=== PATIENT | female | born 1980 | race Caucasian/White ===

== ENCOUNTER → 2018-04-02 10:39 | Outpatient (CLI) | payer OTHER, SELFPAY ==
[2018-04-02 14:40] LABS: Free T4, Direct Thyroxine 1.02 ng/dL (0.78-2.19)
[2018-04-02 14:54] LABS: Thyroid Stimulating Hormone 1.02 uIU/mL (0.47-4.68)
[2018-04-04 15:04] LABS: Progesterone < 0.5 ng/mL
[2018-04-05 12:24] LABS: PTT-LA Screen 30 seconds (< OR = 40); dDRVVT Screen 29 seconds (< OR = 45)
[2018-04-06 00:12] LABS: Protein C Antigen 132 % normal (70-140)
[2018-04-08 03:36] LABS: Anti Cardiolipin Antibody IgG <14 GPL
[2018-04-10 04:08] LABS: B2-Glycoprotein I IgA AB < 9 SAU (< OR = 20); B2-Glycoprotein I IgG AB < 9 SGU (< OR = 20); B2-Glycoprotein I IgM AB < 9 SMU (< OR = 20); Cardiolipin Ab IgA < 11 APL; Cardiolipin Ab IgG < 14 GPL; Cardiolipin Ab IgM < 12 MPL; Phos. Serine AB IgM 36 U/mL; dRVVT Screen 28 seconds (< OR = 45)
== END ==
PROVIDERS: Visit Provider Obstetrics & Gynecology
DX: N96 Recurrent pregnancy loss (principal)
CPT/HCPCS: 36415; 81240; 81241; 81291; 84144; 84439; 84443; 85302; 85306; 85597; 85613; 85730; 86146; 86147; 86148

== ENCOUNTER → 2018-05-15 14:23 | Outpatient (CLI) | payer OTHER, SELFPAY ==
[2018-05-15 16:50] LABS: HCG Quantitative /Beta subunit 39.45 mIU/mL
== END ==
PROVIDERS: Visit Provider Obstetrics & Gynecology
DX: N91.2 Amenorrhea, unspecified (principal); N96 Recurrent pregnancy loss
CPT/HCPCS: 36415; 84702

== ENCOUNTER → 2018-05-21 07:11 | Outpatient (CLI) | payer OTHER, SELFPAY ==
[2018-05-21 09:32] LABS: HCG Quantitative /Beta subunit 804.88 mIU/mL
== END ==
PROVIDERS: Visit Provider Obstetrics & Gynecology
DX: N91.2 Amenorrhea, unspecified (principal); N96 Recurrent pregnancy loss; Z34.91 Encounter for supervision of normal pregnancy, unspecified, first trimester
CPT/HCPCS: 36415; 84702

== ENCOUNTER → 2018-07-01 08:34 | Outpatient (CLI) | payer OTHER, SELFPAY ==
[2018-07-01 09:08] LABS: Add Manual Diff / Slide Review NO; Basophils Percent Auto 0.6 % (0-2); Eosinophils Percent Auto 4.4 % (2-4); Hematocrit 37.7 % (36-46); Hemoglobin 12.9 g/dL (12.0-16.0); Lymphocytes Percent Auto 23.6 % (25-40); Mean Corpuscular HGB Conc 34.2 % (30-36); Mean Corpuscular Hemoglobin 31.2 PG (26-34); Mean Corpuscular Volume 91.1 fL (80-100); Monocytes Percent Auto 6.1 % (3-14); Neutrophils Absolute Auto 4300 /uL (3000-5900); Neutrophils Percent Auto 65.3 % (50-75); Platelet Count 234 X10^3/uL (150-400); Red Blood Cell Count 4.14 X10^6/uL (4.0-5.2); Red Cell Distribution Width 12.6 % (11.6-14.8); White Blood Cell Count 6.5 X10^3/uL (4.5-11.0)
== END ==
PROVIDERS: Visit Provider Obstetrics & Gynecology
DX: O09.521 Supervision of elderly multigravida, first trimester (principal); Z3A.00 Weeks of gestation of pregnancy not specified
CPT/HCPCS: 36415; 81507; 85025; 86850; 86900; 86901; 87086

== ENCOUNTER → 2018-08-20 11:06 | Outpatient (CLI) | payer OTHER, SELFPAY ==
[2018-08-27 13:25] LABS: AFP, Serum 44.5 ng/mL; Calc Gestational Age 17.6; Est Date Determined by ULTRASOUND; Maternal Weight 145 lbs; Number of Fetuses NOT GIVEN; Prev Pregnancies Down Syndrome NOT GIVEN
== END ==
PROVIDERS: Visit Provider Obstetrics & Gynecology
DX: Z34.02 Encounter for supervision of normal first pregnancy, second trimester (principal)
CPT/HCPCS: 36415; 82105

== ENCOUNTER → 2018-09-09 08:05 | Outpatient (CLI) | payer OTHER, SELFPAY ==
--- NOTE | 2018-09-09 08:06 | DI.US.S_ITS ---
PROCEDURE: US OB >= 14 WEEKS FETUS INDICATIONS: anatomy survey OUTSIDE/PRIOR DATING DATA: Last menstrual period (LMP): 04/18/18. LMP-based estimated date of delivery (CAROL): 01/23/19. First dating scan (date and location): Dr. Butts's office 06/04/18. Estimated date of delivery (CAROL) from first dating scan: 01/24/19. TECHNIQUE: Real-time scanning was performed of the fetus, with image documentation and biometric measurements. COMPARISON: [facility], , OB <= 14 WEEKS FETUS, 06/25/2018, 8:51. [facility], , OB <= 14 WEEKS FETUS, 06/04/2018, 16:09. FINDINGS: General: A single live intrauterine gestation is present. Presentation: Vertex. Placenta: Placental position is anterior, without previa. Amniotic fluid index: 12.6 cm, normal range is 5-24 cm. heart rate: 147 beats per minute. Maternal cervical canal: 4.4 cm long. Normal lower limit is 2.5 cm. biometrics: Biparietal diameter: 4.8 cm equals 20 weeks 3 days Head circumference: 18 cm equals 20 weeks 3 days Abdominal circumference: 15.1 cm equals 20 weeks 2 days Femur length: 3.5 cm equals 20 weeks 6 days Estimated gestational age from initial scan: 20 weeks 3 days Composite gestational age from present scan: 20 weeks 4 days Estimated weight and percentile: 361 g, 52nd percentile Measurement variability for biometric dating: +/- 7 days from 14 weeks to 15 weeks 6 days gestation, +/- 10 days from 16 weeks to 21 weeks 6 days gestation, +/- 2 weeks from 22 weeks to 27 weeks 6 days gestation, +/- 3 weeks for 28 weeks gestation or later. weight reference: 4500 g or EFW >90/95% is considered macrosomia or large for gestational age. EFW <10% is small for gestational age. EFW 5% or less is considered intra-uterine growth restriction. Anatomic survey: Neuro: Ventricles are non-dilated at less than 10 mm. Cisterna magna is normal at 3-11 mm. Cerebellum is normal in size and morphology. Nuchal skin fold: Normal at less than 6 mm between 14-21 weeks gestational age. Face: Nose and lips, facial profile are normal. Spine: No evidence for spina bifida. Heart: 4-chambered heart is present, with normal ventricular outflow tracts. Diaphragm: Diaphragm is intact. Stomach: Left-sided stomach is present. Kidneys: No hydronephrosis. Normal is less than 5 mm in 2nd trimester, less than 7 mm in 3rd trimester. Cord: 3-vessel cord has orthotopic insertion. Bladder: Normal in size. Extremities: All 4 extremities identified. IMPRESSION: A single live intrauterine is seen. No significant discrepancy is found between the estimated gestational age based on these images and the estimated gestational age based upon the given outside dating. No anatomic abnormalities are identified. Dictated by: Devaughn Rangel M.D. on 09/09/2018 at 8:28 Approved by: Devaughn Rangel M.D. on 09/09/2018 at 8:31
== END ==
PROVIDERS: Visit Provider Obstetrics & Gynecology
DX: Z34.02 Encounter for supervision of normal first pregnancy, second trimester (principal); Z3A.14 14 weeks gestation of pregnancy
CPT/HCPCS: 76811

== ENCOUNTER → 2018-10-21 13:41 | Outpatient (CLI) | payer OTHER, SELFPAY ==
[2018-10-21 14:56] LABS: Hematocrit 34.5 % (36-46); Hemoglobin 11.9 g/dL (12.0-16.0)
[2018-10-21 15:13] LABS: GTT (PREG) 1 Hour PP 50gm Dose 96 mg/dL (76-139)
== END ==
PROVIDERS: Visit Provider Obstetrics & Gynecology
DX: Z34.02 Encounter for supervision of normal first pregnancy, second trimester (principal)
CPT/HCPCS: 36415; 82950; 85014; 85018

== ENCOUNTER 2018-10-28 13:15 | Emergency (ER) | payer OTHER, SELFPAY ==
[2018-10-28 13:20] VITALS: BP 96/58; PULSE 66; RESP 20; TEMP 36.4; O2SAT 100
--- NOTE | 2018-10-28 13:24 | DI.RAD.S_ITS ---
PROCEDURE: XR ANKLE RT MIN 3V INDICATIONS: rt lateral ankle pain after slip/fall TECHNIQUE: 3 views of the ankle were acquired. COMPARISON: None. FINDINGS: Bones: Ossification between the fibula and talus concerning for avulsion fracture. Ankle mortise is normally aligned. No suspicious bony lesions. Soft tissues: No tibiotalar joint effusion. Achilles tendon appears normal. IMPRESSION: Findings concerning for avulsion fracture possibly involving the talar lateral process. Dictated by: Valentina Snyder MD, PhD on 10/28/2018 at 13:35 Approved by: Valentina Snyder MD, PhD on 10/28/2018 at 13:37
--- NOTE | 2018-10-28 15:35 | ED.LOWEXIN ---
HPI - Extremity Injury (Lower) <ALONZO Hoang - Last Filed: 10/28/18 21:58> General Chief Complaint: Extremity Injury, Lower Stated Complaint: twisted right ankle Time Seen by Provider: 10/28/18 14:03 Source: patient Mode of arrival: ambulatory Limitations: no limitations History of Present Illness HPI Narrative: Healthy 38-year-old female that is a nonsmoker that is currently 26 weeks 3 para 0 here for complaint of pain into her right ankle. She states she was going down the steps when she stepped awkwardly causing her roll her right ankle. Pain is mostly to the lateral aspect of the right ankle. She denies any head injury. No neck pain no back pain. She denies any trauma to the abdomen. No abdominal pain. No vaginal bleeding. Pain is limited to the right ankle. Increased pain with weight-bearing. No other concerns or complaints at this timeframe. MD complaint: ankle injury Related Data Home Medications Medication Instructions Recorded Confirmed Fertilify PO DAILY 04/02/18 04/02/18 Previous Rx's Medication Instructions Recorded progesterone micronized 200 mg 200 mg PO DAILY #30 cap 04/15/18 capsule enoxaparin 40 mg/0.4 mL 40 mg SUBCUT DAILY #12 ml 05/15/18 subcutaneous syringe Allergies Allergy/AdvReac Type Severity Reaction Status Date / Time Penicillins [PENICILLINS] Allergy Mild hives Unverified 12/26/17 12:49 Sulfa (Sulfonamide Allergy Mild hives Unverified 12/26/17 12:49 Antibiotics) [SULFA (SULFONAMIDE ANTIBIOTICS)] Review of Systems <LAONZO Hoang - Last Filed: 10/28/18 21:58> Constitutional Denies chills, Denies fever(s), Denies lethargy and Denies weakness Eyes Denies change in vision, Denies eye discharge, Denies irritation and Denies loss of vision ENT Ears, Nose, Mouth, and Throat: Denies change in voice, Denies neck pain and Denies sore throat Cardiovascular Denies chest pain, Denies irregular heart rhythm, Denies lightheadedness, Denies palpitations, Denies dyspnea, Denies dyspnea on exertion and Denies orthopnea Respiratory Denies cough, Denies dyspnea, Denies dyspnea on exertion and Denies wheezing Gastrointestinal Gastrointestinal: Denies abdominal pain, Denies change in bowel habits, Denies diarrhea, Denies nausea and Denies vomiting Genitourinary Denies hematuria, Denies flank pain, Denies urinary incontinence and Denies urinary urgency Musculoskeletal Denies neck pain Comments: Right ankle pain Integumentary/Breasts Denies pruritus, Denies erythema, Denies rash and Denies wounds Neurologic Denies confusion, Denies loss of vision and Denies weakness Psychiatric Denies anxiety, Denies confusion, Denies depression, Denies homicidal ideation and Denies suicidal ideation Endocrine Denies palpitations Hematologic/Lymphatic Denies easy bruising Allergic/Immunologic Denies wheezing PFSH <ALONZO Hoang - Last Filed: 10/28/18 21:58> Social History Smoking Status: Never smoker Social History Smoking Status: Never smoker Exam <AOLNZO Hoang - Last Filed: 10/28/18 21:58> Initial Vital Signs Initial Vital Signs: Vital Signs Temperature 97.5 F L 10/28/18 13:20 Pulse Rate 66 10/28/18 13:20 Respiratory Rate 20 10/28/18 13:20 Blood Pressure 96/58 L 10/28/18 13:20 Pulse Oximetry 100 10/28/18 13:20 Const General: cooperative and well developed Nutritional Appearance: well nourished Orientation: alert, awake, oriented x3 and not confused HENKS Mouth: oral mucosae normal and moist mucous membranes Eyes Conjunctivae: conjunctivae normal Sclera: sclerae normal Pupils: PERRL EOM: EOM intact bilaterally Cardio Rate: regular rate Rhythm: regular rhythm Heart Sounds: no click, no gallops, no murmurs and no rubs Pulses: normal peripheral pulses Skin General: no rashes or lesions noted, No jaundice and No petechiae Neuro General: alert, oriented x3, gait normal and no focal motor deficits Speech: speech normal Extrem Other: Swelling and ecchymosis to the lateral aspect of the right ankle. No open lesions. Distal sensation is intact. Distal pulses are intact. Distal range of motion is intact. <Holli Calloway DO - Last Filed: 11/01/18 07:09> Initial Vital Signs Initial Vital Signs: Vital Signs Temperature 97.5 F L 10/28/18 13:20 Pulse Rate 66 10/28/18 13:20 Respiratory Rate 20 10/28/18 13:20 Blood Pressure 96/58 L 10/28/18 13:20 Pulse Oximetry 100 10/28/18 13:20 Course <ALONZO Hoang - Last Filed: 10/28/18 21:58> Orders Ordered: ED Orders 10/28/18 13:24 XR ankle RT min 3V Stat Vital Signs - 8 hr 10/28/18 15:50 Temperature 98.1 F Pulse Rate 78 Respiratory Rate 16 Blood Pressure [Left Arm] 100/58 L Pulse Oximetry 100 <Holli Calloway DO - Last Filed: 11/01/18 07:09> Orders Ordered: ED Orders 10/28/18 13:24 XR ankle RT min 3V Stat Vital Signs - 8 hr 10/28/18 15:50 Temperature 98.1 F Pulse Rate 78 Respiratory Rate 16 Blood Pressure [Left Arm] 100/58 L Pulse Oximetry 100 MDM - Extremity Injury (Lower) <ALONZO Hoang - Last Filed: 10/28/18 21:58> Lab Data Urine Dip Bedside Urine Glucose Negative Bedside Urine Bilirubin - Negative Bedside Urine Ketone - Negative Urine Specific [place] 1.010 Bedside Urine Occult Blood - Negative Bedside Urine pH 8.5 Bedside Urine Protein + 30 Bedside Urine Urobilinogen - Negative Bedside Urine Nitrite - Negative Bedside Urine Leukocytes - Negative Esterase Imaging Data Right ankle : Radiologist's impression: [place] [address] XRay Report Signed Patient: Silke Yao#: [id number] : 1980Acct:[id number] Age/Sex: 38 / FDate of Service: 10/28/18 Loc: ED Accession Number: [id number] Procedure: XR ankle RT min 3V Ordering Provider: Holli Calloway D.O. PROCEDURE: XR ANKLE RT MIN 3V INDICATIONS: rt lateral ankle pain after slip/fall TECHNIQUE: 3 views of the ankle were acquired. COMPARISON: None. FINDINGS: Bones: Ossification between the fibula and talus concerning for avulsion fracture. Ankle mortise is normally aligned. No suspicious bony lesions. Soft tissues: No tibiotalar joint effusion. Achilles tendon appears normal. IMPRESSION: Findings concerning for avulsion fracture possibly involving the talar lateral process. Dictated by: Valentina Snyder MD, PhD on 10/28/2018 at 13:35 Approved by: Valentina Snyder MD, PhD on 10/28/2018 at 13:37 [facility] Narrative Medical decision making narrative: X-ray of the right ankle was obtained and shows findings of avulsion fracture to the lateral talar for process. She is placed in a splint for comfort and support along with crutches for nonweightbearing. She is referred Orthopedics. Patient called the number and number provided schedule follow-up appointment here in the next few days. [id number] Tylenol as needed for any discomfort. Ice and elevation help with any swelling. Patient is going to [facility] the [place] at this time for cyst stress monitoring to ensure healthy baby after fall. For any worsening symptoms return to the emergency room. <Holli Calloway DO - Last Filed: 11/01/18 07:09> Lab Data Urine Dip Bedside Urine Glucose Negative Bedside Urine Bilirubin - Negative Bedside Urine Ketone - Negative Urine Specific [place] 1.010 Bedside Urine Occult Blood - Negative Bedside Urine pH 8.5 Bedside Urine Protein + 30 Bedside Urine Urobilinogen - Negative Bedside Urine Nitrite - Negative Bedside Urine Leukocytes - Negative Esterase Discharge Plan Departure Patient Disposition: Home Clinical Impression: Ankle fracture, right Qualifiers: Encounter type: initial encounter Fracture type: closed Qualified Code(s): S82.891A - Other fracture of right lower leg, initial encounter for closed fracture Discharge Date/Time: 10/28/18 15:57 Interventions: ED Discharge Assessment Last Done: 10/28/18 15:55 Instructions: DI for Ankle Fracture Activity Restrictions/Additional Instructions: X-ray the right ankle was obtained and shows a findings concerning for fracture to the right ankle. You have been placed in a splint for comfort and support use as directed. Use crutches for nonweightbearing. Use [id number] Tylenol as needed for any discomfort. Follow up with Orthopedics call the number at number provided to schedule follow-up appointment here in the next few days for further evaluation and treatment. Ice and elevation help with any swelling. For any worsening symptoms return to the emergency room. After discharge from emergency room go to [facility] to monitor the baby and sure everything is okay after the fall. Prescriptions: No Action progesterone micronized [Prometrium] 200 mg capsule 200 mg PO DAILY Qty: 30 RF: 3 enoxaparin [Lovenox] 40 mg/0.4 mL syringe 40 mg SUBCUT DAILY Qty: 12 RF: 8 Fertilify PO DAILY RF: 0 Referrals: [facility] [Provider Group] Maria Eugenia Butts MD [Primary Care Provider] - <Holli Calloway DO - Last Filed: 11/01/18 07:09> Cosign ED Attending Cosignature Attestation: I was immediately available in the department for consultation. This documentation has been reviewed and I agree with assessment and plan. Supervised by Holli Calloway DO
--- NOTE | 2018-10-28 15:39 | ED_ITS ---
HPI - Extremity Injury (Lower) <ALONZO Hoang - Last Filed: 10/28/18 21:58> General Chief Complaint: Extremity Injury, Lower Stated Complaint: twisted right ankle Time Seen by Provider: 10/28/18 14:03 Source: patient Mode of arrival: ambulatory Limitations: no limitations History of Present Illness HPI Narrative: Healthy 38-year-old female that is a nonsmoker that is currently 26 weeks 3 para 0 here for complaint of pain into her right ankle. She states she was going down the steps when she stepped awkwardly causing her roll her right ankle. Pain is mostly to the lateral aspect of the right ankle. She denies any head injury. No neck pain no back pain. She denies any trauma to the abdomen. No abdominal pain. No vaginal bleeding. Pain is limited to the right ankle. Increased pain with weight-bearing. No other concerns or complaints at this timeframe. MD complaint: ankle injury Related Data Home Medications Medication Instructions Recorded Confirmed Fertilify PO DAILY 04/02/18 04/02/18 Previous Rx's Medication Instructions Recorded progesterone micronized 200 mg 200 mg PO DAILY #30 cap 04/15/18 capsule enoxaparin 40 mg/0.4 mL 40 mg SUBCUT DAILY #12 ml 05/15/18 subcutaneous syringe Allergies Allergy/AdvReac Type Severity Reaction Status Date / Time Penicillins [PENICILLINS] Allergy Mild hives Unverified 12/26/17 12:49 Sulfa (Sulfonamide Allergy Mild hives Unverified 12/26/17 12:49 Antibiotics) [SULFA (SULFONAMIDE ANTIBIOTICS)] Review of Systems <ALONZO Hoang - Last Filed: 10/28/18 21:58> Constitutional Denies chills, Denies fever(s), Denies lethargy and Denies weakness Eyes Denies change in vision, Denies eye discharge, Denies irritation and Denies loss of vision ENT Ears, Nose, Mouth, and Throat: Denies change in voice, Denies neck pain and Denies sore throat Cardiovascular Denies chest pain, Denies irregular heart rhythm, Denies lightheadedness, Denies palpitations, Denies dyspnea, Denies dyspnea on exertion and Denies orthopnea Respiratory Denies cough, Denies dyspnea, Denies dyspnea on exertion and Denies wheezing Gastrointestinal Gastrointestinal: Denies abdominal pain, Denies change in bowel habits, Denies diarrhea, Denies nausea and Denies vomiting Genitourinary Denies hematuria, Denies flank pain, Denies urinary incontinence and Denies urinary urgency Musculoskeletal Denies neck pain Comments: Right ankle pain Integumentary/Breasts Denies pruritus, Denies erythema, Denies rash and Denies wounds Neurologic Denies confusion, Denies loss of vision and Denies weakness Psychiatric Denies anxiety, Denies confusion, Denies depression, Denies homicidal ideation and Denies suicidal ideation Endocrine Denies palpitations Hematologic/Lymphatic Denies easy bruising Allergic/Immunologic Denies wheezing PFSH <ALONZO Hoang - Last Filed: 10/28/18 21:58> Social History Smoking Status: Never smoker Social History Smoking Status: Never smoker Exam <ALONZO Hoang - Last Filed: 10/28/18 21:58> Initial Vital Signs Initial Vital Signs: Vital Signs Temperature 97.5 F L 10/28/18 13:20 Pulse Rate 66 10/28/18 13:20 Respiratory Rate 20 10/28/18 13:20 Blood Pressure 96/58 L 10/28/18 13:20 Pulse Oximetry 100 10/28/18 13:20 Const General: cooperative and well developed Nutritional Appearance: well nourished Orientation: alert, awake, oriented x3 and not confused HENLA Mouth: oral mucosae normal and moist mucous membranes Eyes Conjunctivae: conjunctivae normal Sclera: sclerae normal Pupils: PERRL EOM: EOM intact bilaterally Cardio Rate: regular rate Rhythm: regular rhythm Heart Sounds: no click, no gallops, no murmurs and no rubs Pulses: normal peripheral pulses Skin General: no rashes or lesions noted, No jaundice and No petechiae Neuro General: alert, oriented x3, gait normal and no focal motor deficits Speech: speech normal Extrem Other: Swelling and ecchymosis to the lateral aspect of the right ankle. No open lesions. Distal sensation is intact. Distal pulses are intact. Distal range of motion is intact. <Holli Calloway DO - Last Filed: 11/01/18 07:09> Initial Vital Signs Initial Vital Signs: Vital Signs Temperature 97.5 F L 10/28/18 13:20 Pulse Rate 66 10/28/18 13:20 Respiratory Rate 20 10/28/18 13:20 Blood Pressure 96/58 L 10/28/18 13:20 Pulse Oximetry 100 10/28/18 13:20 Course <ALONZO Hoang - Last Filed: 10/28/18 21:58> Orders Ordered: ED Orders 10/28/18 13:24 XR ankle RT min 3V Stat Vital Signs - 8 hr 10/28/18 15:50 Temperature 98.1 F Pulse Rate 78 Respiratory Rate 16 Blood Pressure [Left Arm] 100/58 L Pulse Oximetry 100 <Holli Calloway DO - Last Filed: 11/01/18 07:09> Orders Ordered: ED Orders 10/28/18 13:24 XR ankle RT min 3V Stat Vital Signs - 8 hr 10/28/18 15:50 Temperature 98.1 F Pulse Rate 78 Respiratory Rate 16 Blood Pressure [Left Arm] 100/58 L Pulse Oximetry 100 MDM - Extremity Injury (Lower) <ALONZO Hoang - Last Filed: 10/28/18 21:58> Lab Data Urine Dip Bedside Urine Glucose Negative Bedside Urine Bilirubin - Negative Bedside Urine Ketone - Negative Urine Specific [place] 1.010 Bedside Urine Occult Blood - Negative Bedside Urine pH 8.5 Bedside Urine Protein + 30 Bedside Urine Urobilinogen - Negative Bedside Urine Nitrite - Negative Bedside Urine Leukocytes - Negative Esterase Imaging Data Right ankle : Radiologist's impression: [place] [address] XRay Report Signed Patient: Silke Yao#: [id number] : 1980Acct:[id number] Age/Sex: 38 / FDate of Service: 10/28/18 Loc: ED Accession Number: [id number] Procedure: XR ankle RT min 3V Ordering Provider: Holli Calloway D.O. PROCEDURE: XR ANKLE RT MIN 3V INDICATIONS: rt lateral ankle pain after slip/fall TECHNIQUE: 3 views of the ankle were acquired. COMPARISON: None. FINDINGS: Bones: Ossification between the fibula and talus concerning for avulsion fracture. Ankle mortise is normally aligned. No suspicious bony lesions. Soft tissues: No tibiotalar joint effusion. Achilles tendon appears normal. IMPRESSION: Findings concerning for avulsion fracture possibly involving the talar lateral process. Dictated by: Valentina Snyder MD, PhD on 10/28/2018 at 13:35 Approved by: Valentina Snyder MD, PhD on 10/28/2018 at 13:37 [facility] Narrative Medical decision making narrative: X-ray of the right ankle was obtained and shows findings of avulsion fracture to the lateral talar for process. She is placed in a splint for comfort and support along with crutches for nonweightbearing. She is referred Orthopedics. Patient called the number and number provided schedule follow-up appointment here in the next few days. [id number] Tylenol as needed for any discomfort. Ice and elevation help with any swelling. Patient is going to [facility] the [place] at this time for cyst stress monitoring to ensure healthy baby after fall. For any worsening symptoms return to the emergency room. <Holli Calloway DO - Last Filed: 11/01/18 07:09> Lab Data Urine Dip Bedside Urine Glucose Negative Bedside Urine Bilirubin - Negative Bedside Urine Ketone - Negative Urine Specific [place] 1.010 Bedside Urine Occult Blood - Negative Bedside Urine pH 8.5 Bedside Urine Protein + 30 Bedside Urine Urobilinogen - Negative Bedside Urine Nitrite - Negative Bedside Urine Leukocytes - Negative Esterase Discharge Plan Departure Patient Disposition: Home Clinical Impression: Ankle fracture, right Qualifiers: Encounter type: initial encounter Fracture type: closed Qualified Code(s): S82.891A - Other fracture of right lower leg, initial encounter for closed fracture Discharge Date/Time: 10/28/18 15:57 Interventions: ED Discharge Assessment Last Done: 10/28/18 15:55 Instructions: DI for Ankle Fracture Activity Restrictions/Additional Instructions: X-ray the right ankle was obtained and shows a findings concerning for fracture to the right ankle. You have been placed in a splint for comfort and support use as directed. Use crutches for nonweightbearing. Use [id number] Tylenol as needed for any discomfort. Follow up with Orthopedics call the number at number provided to schedule follow-up appointment here in the next few days for further evaluation and treatment. Ice and elevation help with any swelling. For any worsening symptoms return to the emergency room. After discharge from emergency room go to [facility] to monitor the baby and sure everything is okay after the fall. Prescriptions: No Action progesterone micronized [Prometrium] 200 mg capsule 200 mg PO DAILY Qty: 30 RF: 3 enoxaparin [Lovenox] 40 mg/0.4 mL syringe 40 mg SUBCUT DAILY Qty: 12 RF: 8 Fertilify PO DAILY RF: 0 Referrals: [facility] [Provider Group] Maria Eugenia Butts MD [Primary Care Provider] - <Holli Calloway DO - Last Filed: 11/01/18 07:09> Cosign ED Attending Cosignature Attestation: I was immediately available in the department for consultation. This documentation has been reviewed and I agree with assessment and plan. Supervised by Holli Calloway DO
[2018-10-28 15:50] VITALS: BP 100/58; PULSE 78; RESP 16; TEMP 36.7; O2SAT 100
== END 2018-10-28 15:57 | disposition home or self-care (01) ==
PROVIDERS: Emergency Provider Nurse Practitioner Family; Family Provider Obstetrics & Gynecology; PCP Obstetrics & Gynecology
DX: S82.891A Other fracture of right lower leg, initial encounter for closed fracture (principal); W18.43XA Slipping, tripping and stumbling without falling due to stepping from one level to another, initial encounter
CPT/HCPCS: 29505; 73610; 81003; 99282; 99284

== ENCOUNTER 2018-10-28 16:17 | Outpatient (CLI) | payer OTHER, SELFPAY | END 2018-10-28 17:24 | disposition home or self-care (01) | LOC: LABOR 17:13 → OB 10-29 11:45 | PROVIDERS: Family Provider Obstetrics & Gynecology; PCP Obstetrics & Gynecology; Visit Provider Obstetrics & Gynecology | DX: O26.892 Other specified pregnancy related conditions, second trimester (principal); Z3A.27 27 weeks gestation of pregnancy; W19.XXXA Unspecified fall, initial encounter | CPT/HCPCS: 59025; G0378; G0379 ==

== ENCOUNTER → 2018-12-24 10:41 | Outpatient (CLI) | payer OTHER, SELFPAY ==
[2018-12-25 07:43] LABS: Strep Grp B PCR POS for Grp B Strep
== END ==
PROVIDERS: Family Provider Obstetrics & Gynecology; PCP Internal Medicine; Visit Provider Obstetrics & Gynecology
DX: Z34.83 Encounter for supervision of other normal pregnancy, third trimester (principal); Z3A.35 35 weeks gestation of pregnancy
CPT/HCPCS: 87186; 87653

== ENCOUNTER 2019-01-16 20:00 | Inpatient (IN) | payer OTHER, SELFPAY ==
[2019-01-16] MEDS: miSOPROStol 25 MCG TABLET VAG (21:28)
[2019-01-17 05:32] VITALS: BP 111/68
[2019-01-17] MEDS: LACTATED RINGERS 1,000 ML 100 ML IV ×3 (07:00→19:00)
[2019-01-17 07:27] LABS: Add Manual Diff / Slide Review NO; Basophils Absolute Auto 100 /uL (0-100); Basophils Percent Auto 0.5 % (0-2); Eosinophils Absolute Auto 100 /uL (0-450); Eosinophils Percent Auto 1.1 % (2-4); Hematocrit 42.6 % (36-46); Hemoglobin 14.5 g/dL (12.0-16.0); Lymphocytes Absolute Auto 1600 /uL (1100-4500); Lymphocytes Percent Auto 13.7 % (25-40); Mean Corpuscular HGB Conc 33.9 % (30-36); Mean Corpuscular Hemoglobin 31.9 PG (26-34); Monocytes Absolute Auto 700 /uL (0-900); Monocytes Percent Auto 6.3 % (3-14); Neutrophils Absolute Auto 8900 /uL (1500-7000); Neutrophils Percent Auto 78.4 % (50-75); Platelet Count 235 X10^3/uL (150-400); Red Blood Cell Count 4.53 X10^6/uL (4.0-5.2); Red Cell Distribution Width 13.4 % (11.6-14.8); White Blood Cell Count 11.4 X10^3/uL (4.5-11.0)
[2019-01-17] MEDS: CLINDAMYCIN 900 MG/50 ML PIGGYBACK 50 MG IV ×2 (07:52→16:14)
[2019-01-17] MEDS: OXYTOCIN PREMIX 30 UNIT/500 ML PLAST..BAG IV (08:02)
[2019-01-17] MEDS: ZOLPIDEM 5 MG TABLET PO (20:07)
[2019-01-18] MEDS: CLINDAMYCIN 900 MG/50 ML PIGGYBACK 50 MG IV (00:27)
--- NOTE | 2019-01-18 03:58 | PM.OBHP.1 ---
OB HPI Date/Time Date of admission: 01/16/19 Date Patient Seen: 01/17/19 Time Patient Seen: 07:25 History of Present Condition Chief complaint: INDUCTION : 3 Para: 0 Estimated Date of Delivery: 01/24/19 Estimated Gestational Age (weeks): 39 Narrative: April Yao is a 38 year old female 3 para 0 at 39 weeks gestation for induction of labor secondary to advanced maternal age and positive MTHFR Indications Indication for induction OB: other (AMA, +MTHFR) History of Present care: good care, initiated at week # (9), number of visits (12) and pounds weight gain (24) Dating criteria: LMP confirmed by 1st trimester US Ultrasounds: normal 1st trimester US and normal mid trimester US Obstetrical complications: none Medical complications: other (MTHFR) Preadmission Labs Blood type: A (+) positive -: Antibody screen: negative, GBS status: positive, HBsAG: negative, HIV: negative, HSV 1: positive, HSV 2: negative and RPR/VDLR: negative -: Chlamydia screen: not detected and Gonorrhea screen: not detected -: Rubella: immune and Varicella: immune HCT: 34.5 HCAB: negative PAP: Normal Cell-free DNA: No aneuploidy Urine: negative 1 hr GTT: 96 Prior (ies) History: 09/2017 SAB 11/2107 SAB Evaluation Evaluation Baseline heart rate: 125 Variability: Moderate (11-25) monitor accelerations: Present monitor decelerations: Absent Contraction Frequency (minutes): 4 Uterine Contraction Intensity: Mild Category of Tracing: I Cervical dilation (cm): 1 Cervical effacement (%): 80 station: 0 Laboratory results: Laboratory Tests 01/17/19 01/17/19 07:00 07:00 WBC 11.4 H RBC 4.53 Hgb 14.5 Hct 42.6 MCV 94.0 MCH 31.9 MCHC 33.9 RDW 13.4 Plt Count 235 Neut % (Auto) 78.4 H Lymph % (Auto) 13.7 L [place] % (Auto) 6.3 Eos % (Auto) 1.1 L Baso % (Auto) 0.5 Neut # (Auto) 8900 H Lymph # (Auto) 1600 [place] # (Auto) 700 Eos # (Auto) 100 Baso # (Auto) 100 Blood Type A Positive Antibody Screen Negative [facility] Medical History (Updated 01/18/19 @ 04:05 by MariaE ugenia Butts MD) 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) Anxiety (Acute) Depression (Acute) Family History (Updated 11/07/18 @ 15:14 by Jerome Bernardo MD) Grandmother Heart disease Social History Smoking Status: Never smoker Family History (Updated 11/07/18 @ 15:14 by Jerome Bernardo MD) Grandmother Heart disease Social History Smoking Status: Never smoker Meds Home Medications Medication Instructions Recorded Confirmed Type valacyclovir 500 mg tablet 500 mg PO DAILY #30 tab 12/24/18 01/17/19 Rx heparin (porcine) 5,000 unit SUBCUT Q12H 01/17/19 01/17/19 History Allergies Allergy/AdvReac Type Severity Reaction Status Date / Time Penicillins [PENICILLINS] Allergy Mild hives Verified 01/16/19 20:40 Sulfa (Sulfonamide Allergy Mild hives Verified 01/16/19 20:40 Antibiotics) [SULFA (SULFONAMIDE ANTIBIOTICS)] Exam Vital Signs (past 8 hours): Generally: Patient walking around in room, no acute distress Lungs: Clear to auscultation bilaterally Cardiovascular: Regular rate and rhythm Fundal height: 39 cm Estimated weight: 7 lb Extremities: No edema, negative Homans Objective Labs Result Diagrams: 01/17/19 07:00 Labs: Laboratory Results - last 24 hr 01/17/19 01/17/19 07:00 07:00 WBC 11.4 H RBC 4.53 Hgb 14.5 Hct 42.6 MCV 94.0 MCH 31.9 MCHC 33.9 RDW 13.4 Plt Count 235 Neut % (Auto) 78.4 H Lymph % (Auto) 13.7 L [place] % (Auto) 6.3 Eos % (Auto) 1.1 L Baso % (Auto) 0.5 Neut # (Auto) 8900 H Lymph # (Auto) 1600 [place] # (Auto) 700 Eos # (Auto) 100 Baso # (Auto) 100 Blood Type A Positive Antibody Screen Negative Assessment and Plan Assessment and Plan Assessment and Plan narrative: Assessment 38-year-old 3 para 0 at 39 weeks gestation status post Cytotec x1 last night for cervical ripening, now with favorable cervix Induction secondary to advanced maternal age and positive MTHFR Plan: Pitocin per protocol 2 Artificial rupture of membranes when able Epidural as necessary Expected management to spontaneous vaginal delivery Time Spent with Patient Total time spent with greater than 50% in coordination of care (as documented) at patient's floor/unit and/or counseling patient:: 15-24 minutes
--- NOTE | 2019-01-18 04:02 | P.HPOB_ITS ---
OB HPI Date/Time Date of admission: 01/16/19 Date Patient Seen: 01/17/19 Time Patient Seen: 07:25 History of Present Condition Chief complaint: INDUCTION : 3 Para: 0 Estimated Date of Delivery: 01/24/19 Estimated Gestational Age (weeks): 39 Narrative: April Yao is a 38 year old female 3 para 0 at 39 weeks gestation for induction of labor secondary to advanced maternal age and positive MTHFR Indications Indication for induction OB: other (AMA, +MTHFR) History of Present care: good care, initiated at week # (9), number of visits (12) and pounds weight gain (24) Dating criteria: LMP confirmed by 1st trimester US Ultrasounds: normal 1st trimester US and normal mid trimester US Obstetrical complications: none Medical complications: other (MTHFR) Preadmission Labs Blood type: A (+) positive -: Antibody screen: negative, GBS status: positive, HBsAG: negative, HIV: negative, HSV 1: positive, HSV 2: negative and RPR/VDLR: negative -: Chlamydia screen: not detected and Gonorrhea screen: not detected -: Rubella: immune and Varicella: immune HCT: 34.5 HCAB: negative PAP: Normal Cell-free DNA: No aneuploidy Urine: negative 1 hr GTT: 96 Prior (ies) History: 09/2017 SAB 11/2107 SAB Evaluation Evaluation Baseline heart rate: 125 Variability: Moderate (11-25) monitor accelerations: Present monitor decelerations: Absent Contraction Frequency (minutes): 4 Uterine Contraction Intensity: Mild Category of Tracing: I Cervical dilation (cm): 1 Cervical effacement (%): 80 station: 0 Laboratory results: Laboratory Tests 01/17/19 01/17/19 07:00 07:00 WBC 11.4 H RBC 4.53 Hgb 14.5 Hct 42.6 MCV 94.0 MCH 31.9 MCHC 33.9 RDW 13.4 Plt Count 235 Neut % (Auto) 78.4 H Lymph % (Auto) 13.7 L [place] % (Auto) 6.3 Eos % (Auto) 1.1 L Baso % (Auto) 0.5 Neut # (Auto) 8900 H Lymph # (Auto) 1600 [place] # (Auto) 700 Eos # (Auto) 100 Baso # (Auto) 100 Blood Type A Positive Antibody Screen Negative [facility] Medical History (Updated 01/18/19 @ 04:05 by Maria Eugenia Butts MD) 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) Anxiety (Acute) Depression (Acute) Family History (Updated 11/07/18 @ 15:14 by Jerome Bernardo MD) Grandmother Heart disease Social History Smoking Status: Never smoker Family History (Updated 11/07/18 @ 15:14 by Jerome Bernardo MD) Grandmother Heart disease Social History Smoking Status: Never smoker Meds Home Medications Medication Instructions Recorded Confirmed Type valacyclovir 500 mg tablet 500 mg PO DAILY #30 tab 12/24/18 01/17/19 Rx heparin (porcine) 5,000 unit SUBCUT Q12H 01/17/19 01/17/19 History Allergies Allergy/AdvReac Type Severity Reaction Status Date / Time Penicillins [PENICILLINS] Allergy Mild hives Verified 01/16/19 20:40 Sulfa (Sulfonamide Allergy Mild hives Verified 01/16/19 20:40 Antibiotics) [SULFA (SULFONAMIDE ANTIBIOTICS)] Exam Vital Signs (past 8 hours): Generally: Patient walking around in room, no acute distress Lungs: Clear to auscultation bilaterally Cardiovascular: Regular rate and rhythm Fundal height: 39 cm Estimated weight: 7 lb Extremities: No edema, negative Homans Objective Labs Result Diagrams: 01/17/19 07:00 Labs: Laboratory Results - last 24 hr 01/17/19 01/17/19 07:00 07:00 WBC 11.4 H RBC 4.53 Hgb 14.5 Hct 42.6 MCV 94.0 MCH 31.9 MCHC 33.9 RDW 13.4 Plt Count 235 Neut % (Auto) 78.4 H Lymph % (Auto) 13.7 L [place] % (Auto) 6.3 Eos % (Auto) 1.1 L Baso % (Auto) 0.5 Neut # (Auto) 8900 H Lymph # (Auto) 1600 [place] # (Auto) 700 Eos # (Auto) 100 Baso # (Auto) 100 Blood Type A Positive Antibody Screen Negative Assessment and Plan Assessment and Plan Assessment and Plan narrative: Assessment 38-year-old 3 para 0 at 39 weeks gestation status post Cytotec x1 last night for cervical ripening, now with favorable cervix Induction secondary to advanced maternal age and positive MTHFR Plan: Pitocin per protocol 2 Artificial rupture of membranes when able Epidural as necessary Expected management to spontaneous vaginal delivery Time Spent with Patient Total time spent with greater than 50% in coordination of care (as documented) at patient's floor/unit and/or counseling patient:: 15-24 minutes
--- NOTE | 2019-01-18 06:30 | PM.OBPRVD ---
Events: Labor Induction Delivery date: 01/18/19 Cervical ripening method: per misoprostal protocol Induction method: per pitocin protocol Delivery monitor: external FHT and external uterine Route of delivery: Episiotomy description: None L&D Laceration Description: Perineal - 1st Degree and Superficial (Bilateral labial and periurethral) Delivery repair: vicryl and chromic Estimated blood loss (mL): 250 Anesthesia type: Epidural Complications: None Narrative: Patient complete and pushed for approximately 2-1/2 hours. At 5:54 a.m., a live female infant delivered spontaneously over an intact perineum. A loose nuchal cord x1 was reduced on the perineum. The remainder of the body delivered without difficulty and was placed on mom's abdomen. the cord was double clamped and cut after it stopped pulsing. Cord bloods were obtained. Pitocin was given in the IV fluids. The placenta delivered intact with a 3 vessel cord at 6:02 a.m.. Fundus was massaged to firm. There was initially a gush of venous blood approximately 100 cc. This stopped with delivery of the placenta. A first-degree perineal and bilateral labial and periurethral superficial lacerations were repaired in the usual fashion. Hemostasis was achieved. A red rubber catheter was used to empty the bladder of 200 cc of clear yellow urine. Estimated blood loss 250 cc. Epidural analgesia. Apgars 8 at 1 minute and 9 at 5 minutes. . Mom and infant stable to recovery. Plan for aftercare: To routine care
[2019-01-18] MEDS: IBUPROFEN 600 MG TABLET PO ×3 (10:15→22:29)
[2019-01-19] MEDS: IBUPROFEN 600 MG TABLET PO (07:25)
[2019-01-19 07:37] LABS: Hematocrit 35.6 % (36-46); Hemoglobin 12.2 g/dL (12.0-16.0)
[2019-01-19 09:35] VITALS: BP 111/68
--- NOTE | 2019-01-19 20:13 | P.DS_ITS ---
Discharge Providers Date of admission: 01/16/19 20:00 Discharge Date: 01/19/19 Primary care physician: Jerome Bernardo MD Consults: 01/18/19 07:35 Consult to Automotive Sales Representative Routine Comment: Discharge provider: Maria Eugenia Butts MD Summary Date Patient Seen: 01/19/19 Time Patient Seen: 09:15 Procedures: Cytotec cervical ripening Pitocin induction of labor Spontaneous vaginal delivery Hospital Course: Patient is a 38-year-old 3 para 1 who presented for Cytotec cervical ripening on 01/16/2019 in the evening. On the morning of 01/17/2019 she was started on Pitocin. She progressed to complete dilation and delivered on 01/18/2019 at 6:00 a.m. in the morning. Her course was unremarkable and she is discharged home on day # 1. Peripartum Data Infant Delivery Method: Natural Vaginal Laceration description: Superficial (Labial and periurethral) Episiotomy description: None Procedures: Cytotec cervical ripening Pitocin induction of labor Spontaneous vaginal delivery Repair of laceration complications: none Status at Discharge Cognitive/behavioral status at discharge: oriented Functional status at discharge: independent ambulation Overall status at discharge: patient is progressing back to baseline Time Spent with Patient Total time spent providing and/or coordinating discharge services: Less than 30 minutes Objective Labs Result Diagrams: 01/19/19 07:33 Labs: Laboratory Results - last 24 hr 01/19/19 07:33 Hgb 12.2 Hct 35.6 L Exam Vital Signs (past 8 hours): Generally: Patient is sitting up in bed, no acute distress Fundus: Firm at U -2 Extremities: Negative Homans, no edema Discharge Plan Discharge Plan Patient Disposition: Home Discharge comment: Call with fever, chills or bleeding vaginally more than a pad in an hour Discharge Med Rec/Prescriptions Prescriptions: Discontinued valacyclovir [Valtrex] 500 mg tablet 500 mg PO DAILY Qty: 30 RF: 0 heparin (porcine) 5,000 unit/mL Solution 5,000 unit SUBCUT Q12H RF: 0 Follow up/Referrals: Maria Eugenia Butts MD [Family Provider] - 6 Weeks (Pt will call for followup appointment in 6weeks) Provider Discharge Instructions Diet: Regular Activity: No intercourse Skin/Wound/Dressing Care Report to your healthcare provider any signs of infection, such as:: chills, fever, increased pain and unusual drainage Visit Report/Discharge Packet Instructions: DI for Labor and Delivery, Vaginal Stand Alone Forms: Discharge: Care Discharge Data Primary Care Provider: Jerome Bernardo Attending Provider: Maria Eugenia Butts Admit Date/Time: 01/16/19 20:00 Discharges patient from system. Discharge Date/Time: 01/19/19 11:25
== END 2019-01-19 11:25 | disposition home or self-care (01) | DRG 806 ==
PROVIDERS: Admitting Provider Obstetrics & Gynecology; Family Provider Obstetrics & Gynecology; PCP Internal Medicine; Visit Provider Obstetrics & Gynecology
DX: O99.284 Endocrine, nutritional and metabolic diseases complicating childbirth (principal); E72.12 Methylenetetrahydrofolate reductase deficiency; Z37.0 Single live birth; O99.824 Streptococcus B carrier state complicating childbirth; Z3A.39 39 weeks gestation of pregnancy; O69.81X0 Labor and delivery complicated by cord around neck, without compression, not applicable or unspecified; O70.0 First degree perineal laceration during delivery
CPT/HCPCS: 01967; 36415; 59050; 59400; 85014; 85018; 85025; 86850; 86900; 86901; G0379; J2590

== ENCOUNTER → 2022-09-07 11:32 | Outpatient (CLI) | payer OTHER, SELFPAY ==
[2022-09-07 13:35] LABS: HCG Quantitative /Beta subunit 4104.4 mIU/mL
== END ==
PROVIDERS: Family Provider Obstetrics & Gynecology; Referring Provider Obstetrics & Gynecology; Visit Provider Obstetrics & Gynecology
DX: O26.20 Pregnancy care for patient with recurrent pregnancy loss, unspecified trimester (principal); Z3A.00 Weeks of gestation of pregnancy not specified
CPT/HCPCS: 36415; 84702

== ENCOUNTER → 2022-09-09 10:39 | Outpatient (CLI) | payer OTHER, SELFPAY ==
[2022-09-09 12:09] LABS: HCG Quantitative /Beta subunit 9521.3 mIU/mL
== END ==
PROVIDERS: Family Provider Obstetrics & Gynecology; Referring Provider Obstetrics & Gynecology; Visit Provider Obstetrics & Gynecology
DX: O26.20 Pregnancy care for patient with recurrent pregnancy loss, unspecified trimester (principal)
CPT/HCPCS: 36415; 84702

== ENCOUNTER → 2022-10-03 13:58 | Outpatient (CLI) | payer OTHER, SELFPAY ==
[2022-10-03 22:02] LABS: Urine N gonorrhoeae NOT DETECTED
[2022-10-03 22:07] LABS: Urine Chlamydia NOT DETECTED
== END ==
PROVIDERS: Family Provider Obstetrics & Gynecology; Visit Provider Obstetrics & Gynecology
DX: Z34.81 Encounter for supervision of other normal pregnancy, first trimester (principal); Z3A.08 8 weeks gestation of pregnancy
CPT/HCPCS: 87491; 87591

== ENCOUNTER → 2022-10-14 10:26 | Outpatient (CLI) | payer OTHER, SELFPAY ==
[2022-10-14 11:22] LABS: Add Manual Diff / Slide Review NO; Basophils Absolute Auto 100 /uL (0-100); Basophils Percent Auto 0.8 % (0-2); Eosinophils Absolute Auto 400 /uL (0-450); Eosinophils Percent Auto 4.8 % (2-4); Hematocrit 34.2 % (36-46); Hemoglobin 11.5 g/dL (12.0-16.0); Lymphocytes Absolute Auto 1000 /uL (1100-4500); Lymphocytes Percent Auto 12.2 % (25-40); Mean Corpuscular HGB Conc 33.6 % (30-36); Mean Corpuscular Hemoglobin 30.9 PG (26-34); Mean Corpuscular Volume 91.9 fL (80-100); Monocytes Absolute Auto 400 /uL (0-900); Monocytes Percent Auto 5.3 % (3-14); Neutrophils Absolute Auto 6300 /uL (1500-7000); Neutrophils Percent Auto 76.9 % (50-75); Platelet Count 206 X10^3/uL (150-400); Red Blood Cell Count 3.72 X10^6/uL (4.0-5.2); Red Cell Distribution Width 13.4 % (11.6-14.8); White Blood Cell Count 8.2 X10^3/uL (4.5-11.0)
[2022-10-14 13:05] LABS: Appearance Urine UA CLEAR; Bilirubin Urine UA NEGATIVE (NEGATIVE); Color Urine UA YELLOW; Glucose Urine UA NEGATIVE (Negative); Ketones Urine UA TRACE (NEGATIVE); Leukocyte Esterase Urine UA NEGATIVE (NEGATIVE); Nitrite Urine UA NEGATIVE (Negative); Occult Blood Urine UA NEGATIVE (Negative); Protein Urine UA NEGATIVE (Negative); Urobilinogen Urine UA 0.2 E.U./dL (0.2); pH Urine UA 6.5 (4.5-8.0)
[2022-10-15 09:56] LABS: Varicella IgG Antibody 774 index (Immune >165)
[2022-10-16 17:08] LABS: Hepatitis B Surface Antigen NEGATIVE s/c (NEGATIVE); Rubella Antibody IgG 58.9 IU/mL (>15)
[2022-10-16 17:39] LABS: Hep C Virus Ab w/Reflex Quant NEGATIVE s/c (NEGATIVE)
[2022-10-16 17:45] LABS: HIV 1 & 2 Ab/Ag 4th Gen Combo NEGATIVE (NEGATIVE)
[2022-10-17 05:06] LABS: RPR Screen Non Reactive (Non Reactive)
== END ==
PROVIDERS: Family Provider Obstetrics & Gynecology; Referring Provider Obstetrics & Gynecology; Visit Provider Obstetrics & Gynecology
DX: O09.521 Supervision of elderly multigravida, first trimester (principal); Z3A.00 Weeks of gestation of pregnancy not specified
CPT/HCPCS: 36415; 80055; 81003; 86787; 86803; 86850; 86900; 86901; 87077; 87086; 87147; 87389

== ENCOUNTER → 2022-11-27 11:57 | Outpatient (CLI) | payer OTHER, SELFPAY ==
[2022-11-29 19:07] LABS: AFP Value 24.9 ng/mL (.); Gest Age on Col Date 16.3 weeks (.); Insulin Dep Diabetes No (.); OSBR Risk 1IN 10000 (.); Results Report (.); Test Results *Screen Negative* (.)
== END ==
PROVIDERS: Family Provider Obstetrics & Gynecology; Referring Provider Physician Assistant Medical; Visit Provider Physician Assistant Medical
DX: Z34.82 Encounter for supervision of other normal pregnancy, second trimester (principal); Z3A.16 16 weeks gestation of pregnancy
CPT/HCPCS: 36415; 82105

== ENCOUNTER → 2022-12-25 10:10 | Outpatient (CLI) | payer OTHER, SELFPAY ==
--- NOTE | 2022-12-25 10:11 | DI.US.S_ITS ---
PROCEDURE: US OB >= 14 WEEKS FETUS INDICATIONS: ANATOMY OUTSIDE/PRIOR DATING DATA: Last menstrual period (LMP): 08/05/2022. LMP-based estimated date of delivery (CAROL): 05/12/2023. First dating scan (date and location): 10/03/2022. Estimated date of delivery (CAROL) from first dating scan: 05/09/2023. The calculations are made using the clinical CAROL of 05/12/2023. TECHNIQUE: Real-time scanning was performed of the fetus, with image documentation and biometric measurements. Endovaginal scanning: Not performed COMPARISON: [facility], , OB <= 14 WEEKS FETUS, 10/31/2022, 9:33. [facility], , OB <= 14 WEEKS FETUS, 10/03/2022, 14:39. FINDINGS: General: A single living intrauterine gestation is present. Presentation: Transverse. Placenta: Placental position is anterior left , without previa. Amniotic fluid index: 13.7 cm, normal range is 5-24 cm. Single deepest vertical pocket is 4.3 cm. heart rate: 150 beats per minute. Maternal cervical canal: 4.6 cm long. Normal lower limit is 2.5 cm. biometrics: Biparietal diameter: 4.7 cm, 20 weeks 1 day Head circumference: 18.1 cm, 20 weeks 3 days Abdominal circumference: 15.0 cm, 20 weeks 2 days Femur length: 3.3 cm, 20 weeks 2 days estimated gestational age: 20 weeks 2 days Composite gestational age from present scan: 20 weeks 2 days Estimated weight and percentile: 343 g, 44th percentile Anatomic survey: Neuro: Ventricles are non-dilated at less than 10 mm. Cisterna magna is normal at 3-11 mm. Cerebellum is normal in size and morphology. Nuchal skin fold: Normal at less than 6 mm between 14-21 weeks gestational age. Face: Nose and lips, facial profile are normal. Spine: No evidence for spina bifida. Heart: 4-chambered heart is present, with normal ventricular outflow tracts. Diaphragm: Diaphragm is intact. Stomach: Left-sided stomach is present. Kidneys: No hydronephrosis. Normal is less than 5 mm in 2nd trimester, less than 7 mm in 3rd trimester. Cord: 3-vessel cord has orthotopic insertion. Bladder: Normal in size. Extremities: All 4 extremities identified. IMPRESSION: 1. Single living intrauterine . 2. Normal 2nd trimester anatomy survey. No anomalies detected at this time. We strive to produce accurate, complete, and clear reports of imaging services. To assist us in improving patient care, this report was composed using standard report templates and voice recognition software. Therefore, it may contain abnormal punctuation, insertions and/or omissions. Occasional wrong-word or sound-alike substitutions may occur. Though we review the report and make efforts to correct it, we do recommend that the report be read carefully in proper context to recognize any text inaccuracies. Dictated by: Juan East M.D. on 12/25/2022 at 14:59 Approved by: Juan East M.D. on 12/25/2022 at 15:05
== END ==
PROVIDERS: Family Provider Obstetrics & Gynecology; Referring Provider Obstetrics & Gynecology; Visit Provider Obstetrics & Gynecology
DX: Z34.82 Encounter for supervision of other normal pregnancy, second trimester (principal); Z3A.20 20 weeks gestation of pregnancy
CPT/HCPCS: 76811